=== PATIENT | female | born 1970 | race Caucasian/White ===

== ENCOUNTER 2025-07-02 12:38 | Emergency (ER) | payer OTHER ==
[2025-07-02 14:45] LABS: Absolute Lymphocytes (CBC) 1.1 K/uL (0.7-4.9); Hematocrit 42.0 % (36.0-45.0); Hemoglobin 14.0 g/dL (12.0-15.0); MCH 27.8 pg (27.0-35.0); MCHC 33.3 g/dL (32.0-36.0); MCV 83.6 fL (80-100); MPV 9.9 fL (7.6-11.3); Nucleated RBC Absolute Count 0.0 (0-0); Nucleated Red Blood Cells % 0.1 % (0-0); RBC Red Blood Cell Count 5.02 M/uL (3.86-4.86); White Blood Count 5.40 thou/uL (4.3-10.9)
[2025-07-02 14:46] LABS: Sqamous Epithelial <5 /HPF (None Seen); Urine Crystals Unidentified Moderate /HPF (None Seen); Urine Micro Reflex YN NO BILL MICROSCOPIC
[2025-07-02 14:47] LABS: PT Prothrombin Time 11.5 SECONDS (10-13.0); PTT, Activated Partial Thromb 30.7 SECONDS (27.2-37.4); Protime INR 1.02
[2025-07-02 14:51] LABS: Anion Gap 7.8 mEq/L (5.0-15.0); BUN Blood Urea Nitrogen 19.0 mg/dL (7-18); Glucose Level 100.0 mg/dL (74-106); Potassium 3.8 mEq/L (3.5-5.1)
--- NOTE | 2025-07-02 15:18 | RAD REPORT ---
EXAMINATION: CT Stone Protocol CLINICAL INDICATION: Female, 55 years old. right flank pain TECHNIQUE: CT abdomen and pelvis was performed, without IV contrast, as per department protocol. Axia l, sagittal and coronal reconstructions were obtained. One or more of the following dose reduction techniques were used: Automated exposure control, adjustment of the mA and kV according to the patien t size, and iterative reconstruction. Unless otherwise specified, incidental findings do not require dedicated imaging follow-up. COMPARISON: No prior exam. FINDINGS: The lack of intravenous contrast limits the sensitivity of this exam for evaluation of solid visceral organs, vascular structures, and retroperitoneum. LOWER CHEST: The visualized lung bases are clear. LIVER: Normal in size and contour. No focal lesion. BILIARY SYSTEM: Status post cholecystectomy. SPLEEN: Normal size. No focal lesion. PANCREAS: No mass, ductal dilation, or eda-pancreatic fluid. ADRENALS: Normal; no mass. KIDNEYS AND URETERS: Normal size and contour. No hydronephrosis. URINARY BLADDER: Normal contour. GASTROINTESTINAL TRACT: Sequelae of bariatric surgery. No evidence of bowel obstruction, significant free fluid, free air or abscess. APPENDIX: Normal appendix. LYMPH NODES: No lymphadenopathy. MUSCULOSKELETAL: No acute or suspicious osseous abnormality. ADDITIONAL FINDINGS: None. IMPRESSION: No acute or concerning abnormalities in the abdomen or pelvis, with evaluation limited by lack of IV contrast.
--- NOTE | 2025-07-02 15:34 | ER ---
Nurse's Notes [facility] Name: Chelle Braxton Age: 55 yrs Sex: Female : 1970 Arrival Date: 07/02/2025 Time: 12:38 Bed 14 Private MD: Diagnosis: UTI/ Urinary tract infection, site not specified;Hematuria, unspecified Presentation: 07/02 13:08 Chief complaint: Patient states: SHE WENT TO URGENT CARE FOR URINARY FREQUENCY, URGENCY dd2 AND BURNING WITH URINATION. SENT HOME WITH MEDICATION BUT BEGAN HAVING RT LOWER BACK PAIN AND PRESSURE IN HERE LOWER STOMACH. Coronavirus screen: At this time, the client does not indicate any symptoms associated with coronavirus-19. Ebola Screen: No symptoms or risks identified at this time. Initial Sepsis Screen: Does the patient meet any 2 criteria? No. Patient's initial sepsis screen is negative. Does the patient have a suspected source of infection? No. Patient's initial sepsis screen is negative. Risk Assessment: Do you want to hurt yourself or someone else? Patient reports no desire to harm self or others. Onset of symptoms was July 02, 2025 at 04:00. 13:08 Method Of Arrival: Ambulatory dd2 13:08 Acuity: CHIP 3 dd2 Triage Assessment: 13:11 General: Appears uncomfortable, Behavior is calm, cooperative, appropriate for age. dd2 Pain: Complains of pain in right low back and suprapubic area. : Reports pain in right in suprapubic area in lower back urgency, urinary frequency. Historical: - Allergies: 13:11 Ciprofloxacin; dd2 13:11 Codeine; dd2 - PMHx: 13:11 Hypercholesterolemia; dd2 - PSHx: 13:11 Cholecystectomy; GASTRIC SLEEVE; Total abdominal hysterectomy; dd2 - Immunization history:: Adult Immunizations up to date. - Infectious Disease History:: Denies. - Social history:: Smoking status: Patient denies any tobacco usage or history of. - Family history:: not pertinent. - Hospitalizations: : No recent hospitalization is reported. Screenin:25 [facility] ED Fall Risk Assessment (Adult) History of falling in the last 3 months, af3 including since admission No falls in past 3 months (0 pts) Confusion or Disorientation No (0 pts) Intoxicated or Sedated No (0 pts) Impaired Gait No (0 pts) Mobility Assist Device Used No (0 pt) Altered Elimination No (0 pt) Score/Fall Risk Level 0 - 2 = Low Risk Oriented to surroundings, Maintained a safe environment, Educated pt \T\ family on fall prevention, incl call for assistance when getting out of bed. Abuse screen: Denies threats or abuse. Denies injuries from another. Nutritional screening: No deficits noted. Tuberculosis screening: No symptoms or risk factors identified. Assessment: 13:25 General: Appears in no apparent distress. comfortable, well groomed, well developed, af3 Behavior is calm, cooperative, appropriate for age. Pain: Complains of pain in right low back Pain radiates to right lower quadrant Pain currently is 8 out of 10 on a pain scale. Quality of pain is described as sharp, Pain began 4am this morning. Neuro: Level of Consciousness is awake, alert, obeys commands, Oriented to person, place, time, situation, Appropriate for age. Cardiovascular: Patient's skin is warm and dry. Respiratory: Airway is patent Respiratory effort is even, unlabored, Respiratory pattern is regular, symmetrical. 14:54 Reassessment: Patient appears in no apparent distress at this time. No changes from af3 previously documented assessment. Patient and/or family updated on plan of care and expected duration. Pain level reassessed. Patient is alert, oriented x 3, equal unlabored respirations, skin warm/dry/pink. 15:33 Reassessment: Patient appears in no apparent distress at this time. No changes from af3 previously documented assessment. Patient and/or family updated on plan of care and expected duration. Pain level reassessed. Patient is alert, oriented x 3, equal unlabored respirations, skin warm/dry/pink. Patient states symptoms have improved. Vital Signs: 13:08 BP 108 / 68; Pulse 73; Resp 16; Temp 98.2; Pulse Ox 100% on R/A; Weight 72.57 kg; Pain dd2 8/10; 14:54 BP 108 / 73; Pulse 73; Resp 18; Pulse Ox 100% on R/A; af3 15:36 BP 140 / 59; Pulse 66; Resp 18; Pulse Ox 100% ; af3 13:08 Pain Scale: Adult dd2 ED Course: 12:41 Patient arrived in ED. al6 12:48 Wade Krishnamurthy MD is Attending Physician. rn 13:11 Triage completed. dd2 13:11 Arm band placed on right wrist. dd2 13:24 Darlene Fuentes, RN is Primary Nurse. af3 13:25 Patient has correct armband on for positive identification. Bed in low position. Call af3 light in reach. Provided Education on: call light use . 13:25 No provider procedures requiring assistance completed. af3 14:18 CT Stone Protocol In Process Unspecified. EDMS 14:53 Initial lab(s) drawn, by me, sent to lab. Urine collected: clean catch specimen. af3 Inserted saline lock: 20 gauge in right antecubital area, using aseptic technique. Blood collected. Flushed with 10 mL NS. 15:45 IV discontinued, intact, bleeding controlled, No redness/swelling at site. Pressure af3 dressing applied. Administered Medications: No medications were administered Medication: 13:25 VIS not applicable for this client. af3 Outcome: 15:34 Discharge ordered by . rn 15:44 Discharged to home ambulatory, af3 15:44 Condition: stable 15:44 Discharge instructions given to patient, Instructed on discharge instructions, follow up and referral plans. Demonstrated understanding of instructions, follow-up care, 15:45 Patient left the ED. af3 Signatures: Dispatcher [employer] EDID Wade Krishnamurthy MD MD rn Fry, Ashley RN RN af3 MELISA LO RN RN dd2 Jamee [email or web address]
--- NOTE | 2025-07-02 15:34 | EDPHYS ---
Physician Documentation [facility] Name: Chelle Braxton Age: 55 yrs Sex: Female : 1970 Arrival Date: 07/02/2025 Time: 12:38 Bed 14 Private MD: ED Physician Wade Krishnamurthy HPI: 07/02 15:30 This 55 yrs old Female presents to ER via Ambulatory with complaints of Urinary rn Problem, Low Back Pain. 15:30 Patient reports seen at [facility] this morning at 4 AM for severe pain, diagnosed with rn urinary tract infection, no imaging obtained. Pain got worse so came in for evaluation. Now pain has gotten better. No history of kidney stones. No fever or chills. No vomiting.. Historical: - Allergies: 13:11 Ciprofloxacin; dd2 13:11 Codeine; dd2 - PMHx: 13:11 Hypercholesterolemia; dd2 - PSHx: 13:11 Cholecystectomy; GASTRIC SLEEVE; Total abdominal hysterectomy; dd2 - Immunization history:: Adult Immunizations up to date. - Infectious Disease History:: Denies. - Social history:: Smoking status: Patient denies any tobacco usage or history of. - Family history:: not pertinent. - Hospitalizations: : No recent hospitalization is reported. ROS: 15:30 Constitutional: Negative for fever, chills, and weight loss, Cardiovascular: Negative rn for chest pain, palpitations, and edema, Respiratory: Negative for shortness of breath, cough, wheezing, and pleuritic chest pain, Abdomen/GI: Positive for right flank pain : Positive for hematuria and dysuria Exam: 15:30 Constitutional: This is a well developed, well nourished patient who is awake, alert, rn and in no acute distress. Cardiovascular: Regular rate and rhythm. No pulse deficits. Respiratory: No increased work of breathing, no retractions or nasal flaring. Abdomen/GI: Soft, nontender, no peritoneal signs Back: No CVA tenderness Vital Signs: 13:08 BP 108 / 68; Pulse 73; Resp 16; Temp 98.2; Pulse Ox 100% on R/A; Weight 72.57 kg; Pain dd2 8/10; 14:54 BP 108 / 73; Pulse 73; Resp 18; Pulse Ox 100% on R/A; af3 15:36 BP 140 / 59; Pulse 66; Resp 18; Pulse Ox 100% ; af3 13:08 Pain Scale: Adult dd2 MDM: 12:48 Medical Screening Exam initiated rn 15:30 Differential diagnosis: UTI, Urinary calculus, pyelonephritis. Data reviewed: vital rn signs, nurses notes, lab test result(s), radiologic studies, CT scan, and as a result, I will discharge patient. Counseling: I had a detailed discussion with the patient and/or guardian regarding the historical points, exam findings, and any diagnostic results supporting the discharge/admit diagnosis, lab results, the need for outpatient follow up, to return to the emergency department if symptoms worsen or persist or if there are any questions or concerns that arise at home. Special discussion: I discussed with the patient/guardian in detail that at this point there is no indication for admission to the hospital. It is understood, however, that if the symptoms persist or worsen the patient needs to return immediately for re-evaluation. ED course: CT abdomen and pelvis negative for calculus. Urine shows nitrates and crystals. It is possible that she passed a kidney stone recently as she was in severe pain at home and now very minimal pain and hematuria on UA. Will discharge home and she can continue the Macrobid and Pyridium prescribed at [facility]. I have personally reviewed all of the results, including but not limited to blood tests and imaging deemed necessary to safely discharge this patient at this time. All results given to and printed out for patient. I personally went over all the results with the patient and answered all questions. Patient will follow-up with PCP and or specialist as discussed. Return precautions given and understood.. 07/02 14:06 Order name: CBC with Diff; Complete Time: 15: rn 07/02 14:06 Order name: Basic Metabolic Panel; Complete Time: 15: rn 07/02 14:06 Order name: Protime (+inr); Complete Time: 15: rn 07/02 14:06 Order name: Ptt, Activated; Complete Time: 15: rn 07/02 14:39 Order name: UA W/Microscopic; Complete Time: 15:22 EDMS 07/02 14:06 Order name: CT Stone Protocol; Complete Time: 15: rn 07/02 14:06 Order name: IV Start; Complete Time: 14:30 rn Administered Medications: No medications were administered Disposition Summary: 07/02/25 15:34 Discharge Ordered Notes: Location: Home rn Problem: new rn Symptoms: have improved rn Condition: Stable rn Diagnosis - UTI/ Urinary tract infection, site not specified rn - Hematuria, unspecified rn Followup: rn - With: Private Physician - When: As needed - Reason: Recheck today's complaints, Re-evaluation by your physician Discharge Instructions: - Discharge Summary Sheet rn - Hematuria, Adult rn - Urinary Tract Infection, Adult rn Forms: - Medication Reconciliation Form rn - Antibiotic nutrition intern - Prescription Opioid Use rn - Patient Portal Instructions rn - Leadership Thank You Letter rn Signatures: Dispatcher [employer] EDMS Wade Krishnamurthy MD MD rn MELISA LO RN RN dd2 Corrections: (The following items were deleted from the chart) 14:39 12:49 UA Rfx Mat Cult if indicated+U.LAB.BRZ ordered. [facility] EDVT
[2025-07-02 15:49] VITALS: TEMP 98.2; O2SAT 100
[2025-07-02 15:52] VITALS: BP 140/59
== END 2025-07-02 15:45 | disposition home or self-care (01) ==
LOC: SUPCPDRO 12:38 → ER 12:38
DX: N39.0 Urinary tract infection, site not specified (principal); R31.9 Hematuria, unspecified
CPT/HCPCS: 36415; 74176; 76377; 80048; 81001; 85025; 85610; 85730; 99284